=== PATIENT | male | born 1960 | race Caucasian/White ===

== ENCOUNTER → 2016-10-31 | Outpatient (CLI) | payer MEDICARE, MEDICAID ==
[~2016-10-31] MED LIST: ACTEMRA IV; ALDACTONE100 MG PO; CATAPRES0.3 MG PO; CORGARD80 MG PO; COZAAR100 MG PO; DELTASONE10 MG PO; ELIQUIS2.5 MG PO; FLEXERIL10 MG PO; FORTEO 6001 PEN/600 SUB-Q; HYGROTON25 MG PO; INDOCIN25 MG PO; MAGOX 400400 MG PO; METHOTREXATE2.5 MG PO; NITROGLYCERIN0.2 MG TRANS; NITROSTAT0.4 MG SL; PHENERGAN25 M1 PO; PRILOSEC20 MG PO; RYTHMOL150 MG PO; ULTRAM50 MG PO; VITAMIN B-1000 MCG/M IM; VITAMIN D50000 UNIT PO; ZOFRAN4 MG PO; ZONEGRAN100 M1 PO; ZONISAMIDE100 MG PO
[2016-10-31 10:25] LABS: CREATININE 1.3 mg/dL (0.6-1.3)
== END | disposition disaster alternative care site (69) ==
LOC: GLAB 09:37
PROVIDERS: Neurological Surgery
DX: R25.1 Tremor, unspecified (principal)
CPT/HCPCS: A9577

== ENCOUNTER 2016-11-03 10:00 | Inpatient (IN) | payer MEDICARE, MEDICAID ==
[~2016-11-03] VITALS: Ht 179.1 cm; Wt 97.1 kg
--- NOTE | ~2016-11-03 | OR ---
PATIENT'S NAME: DOMENIC TRIANA [facility] AGE: 56 Y [address] ROOM: [address] [address] LOCATION: TU ADMIT DATE: 11/07/2016 OR/Procedure Report DISCHARGE DATE: FAMILY PHYSICIAN: Robin Borja MD ATTENDING PHYSICIAN: JUAN CORTÉS SURGEON: Juan Cortés MD LOBBY PORTER: DATE OF PROCEDURE: 11/07/2016 PREOPERATIVE DIAGNOSIS: Essential tremor with right greater than left tremor, but bilateral essential tremor that is severe in nature despite year's worth of therapy with request for ventralis intermedius nucleus deep brain stimulator system. POSTOPERATIVE DIAGNOSIS: Essential tremor with right greater than left tremor, but bilateral essential tremor that is severe in nature despite year's worth of therapy with request for ventralis intermedius nucleus deep brain stimulator system. PROCEDURES: 1. Left sided stereotactic paramjit hole utilizing intraoperative stereotaxy, placement of Medtronic with 3387 electrode. 2. Intraoperative neuro testing during the case with resolution of tremor on the right. 3. Creation of separate pocket with implantation of 2 lead system connected to a 2-system battery for possible placements of right-sided ventralis intermedius nucleus deep brain electrode in the future. 4. Intraoperative evaluation with no sign of impedance issues of the system at the time of implantation. 5. Placement of stereotactic fiducials into the skull preoperatively in separate Radiology suite. 6. One hour of mapping and planning utilizing T1 thin slice, T2 thin slice, and thin CT scan on the stereotactic system for determination of the ventralis intermedius nucleus. DESCRIPTION OF PROCEDURE: After getting informed consent, the patient was taken to the operating room and placed under some light anesthesia with a blood pressure control. Time-out was utilized to ascertain the correct site and side of surgery, as well as other pertinent patient's surgical information. Counts obtained beginning of the case with no change between the two. Antibiotics were given within 1 hour of incision. The stereotactic NextGen system from [employer] was brought into the field, its fiducialized head, was co-registered with the Medtronic system. PATIENT'S NAME: DOMENIC TRIANA [facility] AGE: 56 Y [address] ROOM: [address] [address] LOCATION: T ADMIT DATE: 11/07/2016 OR/Procedure Report DISCHARGE DATE: FAMILY PHYSICIAN: Robin Borja MD ATTENDING PHYSICIAN: JUAN CORTÉS Prior to entering to the OR, the patient was seen in Radiology and under a separate sterile technique, incisions were fashioned after anesthetizing with the 1% Lidocaine at the 5 spots circumferentially and then one midline in his skull and fiducials were screwed into the skull itself with CT scan. In the operative theater, the traditional landmarks utilizing the AC and PC and AC/PC line were delineated in the same plane as the AC/PC. The area was planned out for bilateral planning. Ultimately, placing the planned points bilateral sides just over 6 mm anterior to the posterior commissure in the same plane utilizing 14-1/2 mm lateral to the AC/PC midline to each side left and right which was right at 10-1/2 mm from the lateral wall of ventricle. The planning trajectory was evaluated to ascertain that there were no points of vascularity. There were would be transit in the bilateral approach. Once the patient's fiducialized calvarium was co-registered, the selected sites bilaterally were annotated in the left and right frontal region. These were marked and then utilizing iodine prep in a sterile technique, an 18-gauge needle was then passed in scarifying the skull at that point for the stereotactic paramjit hole. Once this was done, the stereotactic frame was removed and the patient was prepped and draped in usual sterile fashion. Incision was then fashioned beginning on the left taking this down to the skull and placing Kathryn clips. Once this was completed, the small notch on the skull was noted and the paramjit hole was stereotactically created. Any extra bone was bitten out with a Kerrison punch rongeur and then the tower for the stereotactic frame was assembled and screwed into the skull. This was done after the initial locking cap set was tested and placed. Once this was completed, and after spending significant time assuring that all of the measurements were appropriate, based on the planning trajectory, all measurements points were placed onto the tower system and after measuring the Stylet introducer, the dura was very cautiously opened revealing minimal CSF flow placing Gelfoam and to try to impede any CSF outflow or pneumocephalus and then very cautiously with a lowered blood pressure over 3 to 5 minutes, passing in the Stylet. After this point, the electrodes were brought to the field. Multiple glove changes were used throughout this entirety of this case and at this point, the electrode was aligned with the bottom of the contact on the alignment guide and then passed the end cautiously. Starting at 5 mm above and then transiting very cautiously with micromotion down to the anticipated target site. Once this was completed, this was connected to the intraoperative testing equipments, an intraoperative testing was performed. During testing, ramping up with the initial settings up to 3 volts on the simulating test resulted in some early initial shoulder tingling and then subsequent hand tingling that all resolved after a short period before extending up to the next highest voltage setting and through that his tremor even very early on was eliminated. He showed no sign of neurological deficit PATIENT'S NAME: DOMENIC TRIANA [facility] AGE: 56 Y [address] ROOM: [place] [address] LOCATION: [facility] ADMIT DATE: 11/07/2016 OR/Procedure Report DISCHARGE DATE: FAMILY PHYSICIAN: Robin Borja MD ATTENDING PHYSICIAN: JUAN CORTÉS from placement. He did have a feeling of nausea and some lightheadedness, although at one point, he had slipped into atrial fibrillation as he does have transient A. fib. The nausea subsided although after review of all of the information, I backed the contact 1.5 mm to try to be certain that we went deeper than anticipated. Up to 3 volts through a full range of testing, he showed no sign of neurological complication save for some of the nausea, although he did have some of the transient somatosensory effect. After this one was placed, he really had no tremor visible on the left hand. He said the right one was distinctly worse for him all the time. At this point, there really was not anything though to test on the left. I had the discussion with the patient intraoperatively and at this point, it was determined that there was no testable tremor and with the right side was limiting his lifestyle. We elected to proceed ahead with placement of the two-lead battery system, but abort the right-sided electrode which had been planned secondary to the dramatic change that he had intraoperatively with his improvement in bilateral tremor. At this point, attention was turned to closure. The system was very cautiously disassembled and the lead was marked. This was clamped into place and then the set cap was then placed. This was circled around circumferentially and then passed into pockets with the boots on it. This wound was closed with simple inverted interrupted 2-0 Vicryl in the hyperdermic tissue and al on the scalp. At this time, attention was then turned to removing the fiducials. The patient was put under general endotracheal anesthesia. He then was prepped and draped in usual sterile fashion from the scalp all the way down to the right infraclavicular region. Once this was performed, attention was turned to opening over top of the electrode system and then opening a second incision towards the right at a point to provide both extension leads for access later with the supposition that we will need to place the right sided electrode in the upcoming future. These were then tunneled down to a separate pocket made in the infraclavicular region. The single electrode system was connected to the lead extension through the left and connected into the internal pulse generator. The right-sided system was covered with a boot and sewn in place and abandoned under the skin for determination later. This was also connected to the internal pulse generator. The internal pulse generator was then evaluated with stimulator program evaluation with impedance ranges of 1346 between the case and 2 and 2549 between 0 and 3. No clearly out of range values were noted. Once this was ascertained, the wounds were closed x 3 with simple interrupted 2-0 Vicryl. The second layer of simple interrupted 2-0 Vicryl over the internal pulse generator for multilevel closure and al over the skin. COMPLICATIONS: None. ESTIMATED BLOOD LOSS: Charted. PATIENT'S NAME: DOMENIC TRIANA [facility] AGE: 56 Y [address] ROOM: [place] [address] LOCATION: [facility] ADMIT DATE: 11/07/2016 OR/Procedure Report DISCHARGE DATE: FAMILY PHYSICIAN: Robin Borja MD ATTENDING PHYSICIAN: JUAN CORTÉS SPECIMENS: None. DISPOSITION: Extubated and taken to the CT scan for post placement processing. MD ROBERT SMITH/modl /[id number] d: t: 11/07/16 2310, OPERATIVE SUMMARY
[~2016-11-03 10:00] MED LIST changes: -ZOFRAN4 MG PO
[2016-11-07 06:21] LABS: INR - (THERAPEUTIC) 1.04 (0.92-1.07); PROTIME 10.9 SECONDS (9.8-11.4)
[2016-11-07 06:24] LABS: CREATININE 1.4 mg/dL (0.6-1.3)
--- NOTE | 2016-11-07 19:27 | NUR ---
Significant Event: PT ARRIVED FROM PACU AT 1540. PT IS ALERT AND ORIENTED X3. PERRLA. FOLLOWS COMMANDS. MOVES ALL EXTREMITIES; MODERATE STRENGTH. GENERALIZED HEADACHE. PAIN MEDS GIVEN IN PACU PRIOR TO PT ARRIVING TO THE FLOOR. DRESSINGS X3 TO R)HEAD/L)HEAD/R)CHEST; ALL DRESSINGS ARE INTACT WITH SCANT DRAINAGE NOTED. IV TO R)ARM SALINE LOCKED. HEAD TO BE AT 30 DEGREES; PT MAY TURN SIDE TO SIDE PER POST-OP ORDERS. VITAL SIGNS STABLE; DECREASED 02 TO 1 LITER PER NASAL CANNULA. HAS BEEN NAUSEATED SINCE ARRIVING FROM PACU. IV ZOFRAN GIVEN X2 IN RECOVERY. AROMATHERAPY WAS PLACED IN THE ROOM. PT REFUSED TO TAKE PO PHENERGAN DUE TO HAVING DRY HEAVES AND HAD A 50 ML EMESIS OF BILE. WAS NOTIFIED AND PRN IV ZOFRAN WAS ORDERED. A DOSE WAS GIVEN DURING SHIFT CHANGE. Follow up: MONITOR NAUSEA; CONTINUE TO MONITOR.
--- NOTE | 2016-11-08 02:33 | NUR ---
Significant Event: PATIENT IS ALERT AND ORIENTED X3. FOLLOWS COMMANDS. PAIN IS CONTROLLED WHEN RESTING. DID REFUSE PAIN MEDICATIONS-TOLERATED PAIN AT 5/10. PHENEGAN AND ZOFRAN GIVEN MULTIPLE TIMES THIS SHIFT FOR N/V AND DRY HEAVING. 1L O2 PER NASAL CANNULA-CAN WEAN OFF. DRESSINGS TO RIGHT UPPER CHEST, TOP OF LEFT HEAD , TOP OF RIGHT HEAD- INTACT. PERRLA. STRONG THROUGHOUT. SR-SB. REGULAR DIET TODAY IF PATIENT CAN TOLERATE. LAST BM 11/07- HYPOACTIVE. BEDREST FOR NOW-KEEP HOB > 30 DEGREES. R) POST FA PIV -SL'D. USES URINAL. TAKES PILLS WHOLE ONE AT A TIME WITH WATER. Follow up: CONTINUE TO MONITOR
[2016-11-08] MEDS ORDERED: ZOFRAN4 MG PO (12:27)
--- NOTE | 2016-11-08 14:16 | NUR ---
Significant Event: Patient A/O X3. PERRLA. Headache with Ultram given at 1222. Some relief noted. Bilateral upper extremity tremors with right being more prominent. HOB > 30 degrees. VSS. Sinus rhythm. VSS. 1-2 + edema to lower extremities. Afebrile. Room air with sats in the mid 90s. LS clear throughout. Regular diet. Minimal intake. nauseated with 450 ml emesis. BS hypoactive. Patient passing gas. Dressings to right chest, top of head removed. patient presented how to dress and clean them at home. Generalized scattered bruising. R) forearm PIV SLL and D/Cd prior to dismissal. 1 assist with gaitbelt. Pleasant and cooperative with cares. Discharge education and medications presented to patient. Stated understanding. Patient discharged to home at 1400 with son via private auto. Follow up:
== END 2016-11-08 14:00 | disposition disaster alternative care site (69) | DRG 27 ==
LOC: GPOC 10:00 → GNTU 11-07 05:15 → GRAD 11-07 08:00 → GPOC 11-07 10:00 → EDSTATUS 11-07 10:00 → GNTU 11-07 14:22
PROVIDERS: ADMIT Neurological Surgery
DX: G25.0 Essential tremor (principal); I10 Essential (primary) hypertension; I48.91 Unspecified atrial fibrillation; I25.10 Atherosclerotic heart disease of native coronary artery without angina pectoris; E78.5 Hyperlipidemia, unspecified; M81.0 Age-related osteoporosis without current pathological fracture; M06.9 Rheumatoid arthritis, unspecified; Z92.29 Personal history of other drug therapy; Z79.01 Long term (current) use of anticoagulants
CPT/HCPCS: A9577; C1767; C1778; C1787; C1883; J0690; J1100; J1170; J2270; J2405; J2550; J3010; J3420; J7030; J7512